=== PATIENT | female | born 1995 | race Caucasian/White ===

== ENCOUNTER → 2020-10-03 | Outpatient (CLI) | payer OTHER ==
[~2020-10-03] MED LIST: AMOXICILLIN500 MG PO; ANAPROX DS550 MG PO; ATARAX25 MG PO; BENADRYL ALLERG25 M5 PO; BIRTH CONTROL1 EAC1 PO; CLARITIN10 MG PO; FIORICET 325 MG1 TAB PO; FLEXERIL10 MG PO; MACROBID100 M1 PO; MEDROL DOSEPAK4 MG PO; MOTRIN600 MG PO; NEXIUM20 M1 PO; PREDNICOT20 MG PO; PRELONE15 MG/5 ML PO; PRENATAL1 TA3 PO; PRILOSEC40 MG PO; PROTONIX20 MG PO; REGLAN10 M1 PO; REGLAN5 MG PO; STOMACH PILL; TYLENOL W/CODEI1 TA2 PO; VICODIN 5/500 505 MG PO; WELCHOL625 MG PO; ZANTAC 150150 MG PO; ZITHROMAX Z PA250 MG PO; ZOFRAN ODT4 MG SL; ZOFRAN4 MG PO
== END | disposition home or self-care (01) ==
LOC: COVID19 16:15
PROVIDERS: ATTEND Family Medicine
DX: Z20.828 Contact with and (suspected) exposure to other viral communicable diseases (principal)

== ENCOUNTER → 2021-06-05 | Outpatient (CLI) | payer OTHER ==
[2021-06-05 17:49] LABS: BASO % 0.6 % (0.0-1.0); EOS # 0.1 10*3/uL (0.0-0.4); EOS % 1.7 % (1.0-4.0); HEMATOCRIT 40.6 % (37.0-47.0); LYMPH # 1.9 10*3/uL (1.3-4.4); LYMPH % 30.3 % (27.0-41.0); MEAN CELL VOLUME 90.2 fl (81.0-99.0); MEAN CORPUSCULAR HGB 29.6 pg (27.0-31.0); MEAN CORPUSCULAR HGB CONC 32.8 g/dl (33.0-37.0); MEAN PLATELET VOLUME 11.5 fl (9.6-12.3); MONO # 0.5 10*3/uL (0.1-1.0); NEUT # 3.8 10*3/uL (2.3-7.9); NEUT % 59.2 % (47.0-73.0); PLATELET COUNT AUTOMATED 253 10*3/uL (130-400); RED CELL DISTRI WIDTH 12.4 % (0-14.5); RETICULOCYTE % 1.28 % (0.50-2.50); WHITE BLOOD COUNT 6.4 10*3/uL (4.8-10.8)
[2021-06-05 17:50] LABS: BILIRUBIN Negative (Negative); BLOOD Negative (Negative); GLUCOSE Negative (Negative); KETONE Negative (Negative); LEUKO ESTERASE 2+ (Negative); NITRITE Negative (Negative); PH 6.5 (4.5-8.0)
[2021-06-05 17:51] LABS: COLOR Yellow (Yellow)
[2021-06-05 17:52] LABS: CLARITY Cloudy (Clear)
[2021-06-05 17:59] LABS: BACTERIA 1+; EPITHELIAL CELLS 21-30; RBC 0-2 rbc/hpf (0-2)
[2021-06-05 18:04] LABS: ALBUMIN 4.4 gm/dl (3.1-4.5); ALKALINE PHOSPHATASE 73 U/L (45-117); BUN 11 mg/dl (7-24); CHLORIDE 108 mmol/L (98-107); CHOLESTEROL 143 mg/dL (<200); CREATININE 0.94 mg/dL (0.55-1.02); GAMMA GLUTAMYL TRANSPEPTIDASE 10 U/L (5-55); IRON 36 ug/dL (50-170); LDL CHOLESTEROL 79 mg/dL (9-159); LIPASE 149 U/L (73-393); POTASSIUM 3.8 mmol/L (3.5-5.1); SGOT/AST 12 IU/L (3-35); SGPT/ALT 25 U/L (12-78); SODIUM 141 mmol/L (136-145); T3 UPTAKE 31 % (31-39); THYROXINE (T4) TOTAL 8.6 ug/dl (4.8-13.9); TOTAL IRON BINDING CAPACITY 425 ug/dl (250-450); TOTAL PROTEIN 7.9 gm/dL (6.4-8.2); TRIGLYCERIDES 155 mg/dl (<150); URIC ACID 4.6 mg/dL (2.6-6.0)
[2021-06-05 18:18] LABS: VITAMIN D, 25-HYDROXY 41.4 ng/mL (30-100)
[2021-06-06 08:08] LABS: FOLLICLE STIMULATING HORMONE 3.7 mIU/mL (.); H PYLORI IGG AB 0.18 (0.00-0.79); LUTEINIZING HORMONE 2.2 mIU/mL (.); PROGESTERONE 0.2 ng/mL (.); PROLACTIN 8.4 ng/mL (4.8-23.3); RHEUMATOID ARTHRITIS FACTOR <10.0 IU/mL (0.0-13.9)
[2021-06-06 14:08] LABS: ANTI-DSDNA ANTIBODIES 3 IU/mL (0-9); H.PYLORI IGM <9.0 units (0.0-8.9)
[2021-06-06 16:08] LABS: H.PYLORI IgA <9.0 units (0.0-8.9)
[2021-06-07 06:07] LABS: HUMAN GROWTH HORMONE 0.1 ng/mL (0.0-10.0)
[2021-06-08 17:06] LABS: ESTROGENS, TOTAL 42 pg/mL (.)
== END | disposition home or self-care (01) ==
LOC: LAB 16:44
PROVIDERS: ATTEND Family Medicine
DX: E55.9 Vitamin D deficiency, unspecified (principal); R79.89 Other specified abnormal findings of blood chemistry; R53.83 Other fatigue; R74.8 Abnormal levels of other serum enzymes

== ENCOUNTER → 2021-09-12 | Outpatient (CLI) | payer OTHER | END | disposition home or self-care (01) | LOC: COVID19 16:07 | PROVIDERS: ATTEND Internal Medicine | DX: Z11.52 Encounter for screening for COVID-19 (principal) ==

== ENCOUNTER → 2022-08-01 | Outpatient (CLI) | payer OTHER ==
[2022-08-01 14:21] LABS: BASO % 0.5 % (0.0-1.0); EOS # 0.2 10*3/uL (0.0-0.4); EOS % 2.7 % (1.0-4.0); HEMATOCRIT 41.4 % (37.0-47.0); LYMPH # 1.8 10*3/uL (1.3-4.4); LYMPH % 24.4 % (27.0-41.0); MEAN CELL VOLUME 91.8 fl (81.0-99.0); MEAN CORPUSCULAR HGB CONC 33.8 g/dl (33.0-37.0); MEAN PLATELET VOLUME 11.3 fl (9.6-12.3); MONO # 0.7 10*3/uL (0.1-1.0); MONO % 8.9 % (3.0-9.0); NEUT # 4.7 10*3/uL (2.3-7.9); NEUT % 63.2 % (47.0-73.0); PLATELET COUNT AUTOMATED 217 10*3/uL (130-400); RED BLOOD COUNT 4.51 10*6/uL (4.10-5.10); RED CELL DISTRI WIDTH 11.9 % (0-14.5); RETICULOCYTE % 1.82 % (0.50-2.50); WHITE BLOOD COUNT 7.5 10*3/uL (4.8-10.8)
[2022-08-01 14:26] LABS: BILIRUBIN Negative (Negative); BLOOD Negative (Negative); CLARITY Clear (Clear); COLOR Yellow (Yellow); GLUCOSE Negative (Negative); KETONE Negative (Negative); LEUKO ESTERASE Trace (Negative); NITRITE Negative (Negative); PH 5.5 (4.5-8.0); UROBILINOGEN 0.2 E.U./dl (0.0-1.0)
[2022-08-01 14:39] LABS: ALKALINE PHOSPHATASE 61 U/L (45-117); BUN 11 mg/dl (7-24); CHLORIDE 107 mmol/L (98-107); CHOLESTEROL 122 mg/dL (<200); CREATININE 0.86 mg/dL (0.55-1.02); GAMMA GLUTAMYL TRANSPEPTIDASE 16 U/L (5-55); IRON 72 ug/dL (50-170); LDL CHOLESTEROL 50 mg/dL (9-159); POTASSIUM 3.5 mmol/L (3.5-5.1); SGOT/AST 14 IU/L (3-35); SGPT/ALT 22 U/L (12-78); SODIUM 138 mmol/L (136-145); TOTAL PROTEIN 7.6 gm/dL (6.4-8.2); TRIGLYCERIDES 191 mg/dl (<150); URIC ACID 4.4 mg/dL (2.6-6.0)
[2022-08-01 14:44] LABS: BACTERIA 2+
[2022-08-01 15:32] LABS: FERRITIN 27.8 ng/mL (10.0-291.0); VITAMIN D, 25-HYDROXY 23.8 ng/mL (30-100)
[2022-08-02 08:08] LABS: RHEUMATOID FACTOR <10.0 IU/mL (<14.0)
[2022-08-02 12:07] LABS: ANTI-DSDNA ANTIBODIES 5 IU/mL (0-9)
== END | disposition home or self-care (01) ==
LOC: LAB 13:52
PROVIDERS: ATTEND Family Medicine
DX: R79.89 Other specified abnormal findings of blood chemistry (principal); M47.817 Spondylosis without myelopathy or radiculopathy, lumbosacral region; R53.83 Other fatigue; E78.5 Hyperlipidemia, unspecified; R74.8 Abnormal levels of other serum enzymes; E55.9 Vitamin D deficiency, unspecified

== ENCOUNTER 2024-11-11 16:35 | Emergency (ER) | payer OTHER ==
[~2024-11-11] VITALS: Ht 162.5 cm; Wt 81.6 kg
[2024-11-11 17:38] LABS: BASO % 0.4 % (0.0-1.0); EOS # 0.1 10*3/uL (0.0-0.4); HEMATOCRIT 40.4 % (37.0-47.0); MEAN CORPUSCULAR HGB 30.5 pg (27.0-31.0); MEAN CORPUSCULAR HGB CONC 33.2 g/dl (33.0-37.0); MEAN PLATELET VOLUME 10.8 fl (9.6-12.3); MONO # 0.8 10*3/uL (0.1-1.0); MONO % 7.7 % (3.0-9.0); NEUT # 7.3 10*3/uL (2.3-7.9); NEUT % 73.4 % (47.0-73.0); PLATELET COUNT AUTOMATED 249 10*3/uL (130-400); RED BLOOD COUNT 4.39 10*6/uL (4.10-5.10); RED CELL DISTRI WIDTH 11.9 % (0-14.5); WHITE BLOOD COUNT 9.9 10*3/uL (4.8-10.8)
[2024-11-11 17:58] LABS: ALKALINE PHOSPHATASE 68 U/L (46-116); BUN 9 mg/dl (9-23); CHLORIDE 103 mmol/L (98-107); POTASSIUM 3.9 mmol/L (3.4-5.1); SGPT/ALT 26 U/L (5-49); TOTAL PROTEIN 7.3 gm/dL (6.0-8.0)
[2024-11-11 18:05] LABS: ETHYL ALCOHOL < 3.0 mg/dl (<3)
[2024-11-11 18:47] LABS: BILIRUBIN Negative (Negative); BLOOD Negative (Negative); CLARITY Cloudy (Clear); COLOR Yellow (Yellow); GLUCOSE Negative (Negative); KETONE Trace (Negative); LEUKO ESTERASE Negative (Negative); NITRITE Negative (Negative); PH 5.5 (4.5-8.0); SPECIFIC GRAVITY 1.025 (1.001-1.030)
[2024-11-11 18:54] LABS: URINE AMPHETAMINES Negative (1000ng/ml); URINE BARBITURATES Negative (200ng/ml); URINE BENZODIAZEPINES Negative (200ng/ml); URINE CANNABINOIDS (THC) Negative (50ng/ml); URINE COCAINE Negative (300ng/ml); URINE METHADONE Negative (300ng/ml); URINE OPIATES Negative (300ng/ml); URINE PHENCYCLIDINE Negative (25ng/ml)
[2024-11-11 18:58] LABS: BACTERIA TRACE; EPITHELIAL CELLS 31-40; MUCOUS TRACE; WBC 0-2 wbc/hpf (0-5)
== END 2024-11-11 19:45 | disposition home or self-care (01) ==
LOC: ED 16:35
PROVIDERS: Internal Medicine
DX: G43.809 Other migraine, not intractable, without status migrainosus (principal); J45.909 Unspecified asthma, uncomplicated; K21.9 Gastro-esophageal reflux disease without esophagitis; H54.7 Unspecified visual loss; Z79.899 Other long term (current) drug therapy; Z88.0 Allergy status to penicillin; Z98.890 Other specified postprocedural states

== ENCOUNTER → 2024-11-12 | Outpatient (CLI) | payer OTHER ==
[2024-11-12 11:17] LABS: HEMATOCRIT 40.6 % (37.0-47.0); MEAN CELL VOLUME 92.7 fl (81.0-99.0); MEAN CORPUSCULAR HGB 30.6 pg (27.0-31.0); MEAN PLATELET VOLUME 11.1 fl (9.6-12.3); PLATELET COUNT AUTOMATED 248 10*3/uL (130-400); RED BLOOD COUNT 4.38 10*6/uL (4.10-5.10); WHITE BLOOD COUNT 6.7 10*3/uL (4.8-10.8)
[2024-11-12 11:44] LABS: ALKALINE PHOSPHATASE 66 U/L (46-116); BUN 7 mg/dl (9-23); CHLORIDE 103 mmol/L (98-107); CHOLESTEROL 157 mg/dL (<200); GAMMA GLUTAMYL TRANSPEPTIDASE 21 U/L (0-73); LDL CHOLESTEROL 96 mg/dL (9-159); SGPT/ALT 22 U/L (5-49); T3 UPTAKE 30.2 % (22.4-36.7); TOTAL PROTEIN 7.4 gm/dL (6.0-8.0); TRIGLYCERIDES 86 mg/dl (<150); URIC ACID 5.6 mg/dL (3.1-7.8)
[2024-11-12 12:04] LABS: BASOPHILS 4 % (0-1); PLATELET SUFFICIENCY NORMAL (NORMAL); POLYCHROMASIA SLIGHT; TOTAL CELLS COUNTED 100 #CELLS
[2024-11-12 12:05] LABS: TARGET CELLS FEW
[2024-11-12 12:06] LABS: VITAMIN D, 25-HYDROXY 36.2 ng/mL (30-100)
[2024-11-13 17:06] LABS: ANTI-DSDNA ANTIBODIES 3 IU/mL (0-9)
[2024-11-15 16:07] LABS: A/G RATIO 1.4 (0.7-1.7); ALBUMIN 3.9 g/dL (2.9-4.4); ALPHA-1-GLOBULIN 0.2 g/dL (0.0-0.4); ALPHA-2-GLOBULIN 0.5 g/dL (0.4-1.0); GAMMA GLOBULIN 1.1 g/dL (0.4-1.8); GLOBULIN, TOTAL 2.7 g/dL (2.2-3.9)
== END | disposition home or self-care (01) ==
LOC: LAB 10:53
PROVIDERS: ATTEND Family Medicine
DX: R79.89 Other specified abnormal findings of blood chemistry (principal); R53.83 Other fatigue; E55.9 Vitamin D deficiency, unspecified; E10.9 Type 1 diabetes mellitus without complications

== ENCOUNTER → 2025-03-26 | Outpatient (CLI) | payer OTHER ==
[2025-03-26 11:07] LABS: BASO % 0.7 % (0.0-1.0); BILIRUBIN Negative (Negative); BLOOD Negative (Negative); CLARITY Clear (Clear); COLOR Yellow (Yellow); EOS # 0.2 10*3/uL (0.0-0.4); EOS % 3.8 % (1.0-4.0); GLUCOSE Negative (Negative); HEMATOCRIT 38.6 % (37.0-47.0); KETONE Negative (Negative); LEUKO ESTERASE Negative (Negative); MEAN CELL VOLUME 92.1 fl (81.0-99.0); MEAN CORPUSCULAR HGB 30.3 pg (27.0-31.0); MEAN CORPUSCULAR HGB CONC 32.9 g/dl (33.0-37.0); MEAN PLATELET VOLUME 10.6 fl (9.6-12.3); MONO # 0.5 10*3/uL (0.1-1.0); MONO % 12.7 % (3.0-9.0); NEUT # 2.7 10*3/uL (2.3-7.9); NEUT % 62.5 % (47.0-73.0); NITRITE Negative (Negative); PLATELET COUNT AUTOMATED 213 10*3/uL (130-400); RED BLOOD COUNT 4.19 10*6/uL (4.10-5.10); RED CELL DISTRI WIDTH 12.9 % (0-14.5); UROBILINOGEN 0.2 E.U./dl (0.0-1.0); WHITE BLOOD COUNT 4.2 10*3/uL (4.8-10.8)
[2025-03-26 11:39] LABS: EPITHELIAL CELLS TNTC; RBC 0-2 rbc/hpf (0-2)
[2025-03-26 11:56] LABS: VITAMIN D, 25-HYDROXY 41.6 ng/mL (30-100)
[2025-03-26 12:14] LABS: ALKALINE PHOSPHATASE 60 U/L (46-116); BUN 12 mg/dl (9-23); CHLORIDE 105 mmol/L (98-107); CHOLESTEROL 151 mg/dL (<200); GAMMA GLUTAMYL TRANSPEPTIDASE 17 U/L (0-73); LDL CHOLESTEROL 91 mg/dL (9-159); POTASSIUM 4.2 mmol/L (3.4-5.1); SGPT/ALT 32 U/L (5-49); T3 UPTAKE 24.9 % (22.4-36.7); THYROXINE (T4) TOTAL 7.3 ug/dl (4.5-10.9); TRIGLYCERIDES 127 mg/dl (<150); URIC ACID 5.7 mg/dL (3.1-7.8)
== END | disposition home or self-care (01) ==
LOC: US 03-21 14:00 → LAB 10:38 → US 13:00
PROVIDERS: ATTEND Family Medicine
DX: H53.8 Other visual disturbances (principal); H54.7 Unspecified visual loss; E55.9 Vitamin D deficiency, unspecified; E78.5 Hyperlipidemia, unspecified; R53.83 Other fatigue; R79.89 Other specified abnormal findings of blood chemistry; R51.9 Headache, unspecified